=== PATIENT | female | born 1995 | race African-American/Black ===

== ENCOUNTER 2016-05-05 18:31 | Emergency (ER) | payer OTHER ==
[~2016-05-05] VITALS: Ht 160 cm; Wt 55.0 kg
[2016-05-05 18:44] VITALS: BP 118/76; PULSE 91; RESP 17; TEMP 97.4; O2SAT 97
[2016-05-05 19:35] LABS: AUTOMATED NEUTROPHIL # 4.5 TH/MM3 (1.8-7.7); BASOPHIL % 0.5 % (0.0-2.0); EOSINOPHIL # 0.1 TH/MM3 (0-0.4); EOSINOPHIL % 0.7 % (0.0-4.0); HEMATOCRIT 42.5 % (35.0-46.0); LYMPH % 32.9 % (9.0-44.0); LYMPHOCYTE # 2.6 TH/MM3 (1.0-4.8); MEAN CELL VOLUME 73.7 FL (80.0-100.0); MEAN CORPUSCULAR HGB CONC 32.6 % (32.0-36.0); MONO % 7.8 % (0.0-8.0); NEUT % 58.1 % (16.0-70.0); PLATELET COUNT 241 TH/MM3 (150-450); RED BLOOD COUNT 5.77 MIL/MM3 (4.00-5.30); RED CELL DISTRIBUTION WIDTH 13.6 % (11.6-17.2); WHITE BLOOD COUNT 7.8 TH/MM3 (4.0-11.0)
[2016-05-05 19:41] LABS: HEMO FLAGS AUTO DIFF
--- NOTE | 2016-05-05 19:44 | PD ---
HPI Chief Complaint: Psychiatric Symptoms Time Seen by Provider: 19:44 Travel History International Travel<30 days: No Contact w/Intl Traveler<30days: No Traveled to known affect area: No History of Present Illness HPI 20-year-old female presents to the emergency department under a Diamond act for psychiatric evaluation. Patient states that she was "tripping on acid" when she "freaked out." She states that she had bad thoughts about herself. She states that it was a "bad trip." She denies any suicidal homicidal ideations at this time. States that she feels much better. Patient also uses IV heroin and last used 3 days ago. Patient states she does have a psychiatric history, does not currently take medication, cannot recall the medication that she is supposed to take. Denies any other needs at this time. PFSH Past Medical History Bipolar Disorder: Yes Anxiety: Yes Depression: Yes ?: Unknown Social History Alcohol Use: Yes Tobacco Use: Yes Substance Use: Yes Allergies-Medications (Allergen,Severity, Reaction): Coded Allergies: No Known Allergies (Unverified , 05/05/16) Reported Meds & Prescriptions Reported Meds & Active Scripts Active No Active Prescriptions or Reported Medications Review of Systems Except as stated in HPI: all other systems reviewed are Neg Physical Exam Narrative GENERAL: Well-nourished, well-developed female patient in no acute distress SKIN: Warm and dry. Ecchymotic markings on arms, tracks and antecubital space. HEAD: Normocephalic. EYES: No scleral icterus. No injection or drainage. NECK: Supple, trachea midline. No JVD or lymphadenopathy. CARDIOVASCULAR: Elevated rate and rhythm without murmurs, gallops, or rubs. RESPIRATORY: Breath sounds equal bilaterally. No accessory muscle use. GASTROINTESTINAL: Abdomen soft, non-tender, nondistended. MUSCULOSKELETAL: No cyanosis, or edema. BACK: Nontender without obvious deformity. No CVA tenderness. Data Data Last Documented VS Vital Signs Date Time Temp Pulse Resp B/P Pulse Ox O2 Delivery O2 Flow Rate FiO2 05/05/16 18:44 97.4 91 17 118/76 97 Orders Complete Blood Count With Diff (05/05/16 19:04) Basic Metabolic Panel (Bmp) (05/05/16 19:04) Drug Screen, Random Urine (05/05/16 19:04) Ed Urine Pregnancytest Poc (05/05/16 19:04) Alcohol (Ethanol) (05/05/16 19:04) Psych Screen (05/05/16 19:04) Diet Regular Basic (05/06/16 Breakfast) Hydroxyzine Pamoate (Vistaril) (05/05/16 21:45) Labs Laboratory Tests Test 05/05/16 19:00 White Blood Count 7.8 TH/MM3 Red Blood Count 5.77 MIL/MM3 Hemoglobin 13.9 GM/DL Hematocrit 42.5 % Mean Corpuscular Volume 73.7 FL Mean Corpuscular Hemoglobin 24.0 PG Mean Corpuscular Hemoglobin 32.6 % Concent Red Cell Distribution Width 13.6 % Platelet Count 241 TH/MM3 Mean Platelet Volume 9.3 FL Neutrophils (%) (Auto) 58.1 % Lymphocytes (%) (Auto) 32.9 % Monocytes (%) (Auto) 7.8 % Eosinophils (%) (Auto) 0.7 % Basophils (%) (Auto) 0.5 % Neutrophils # (Auto) 4.5 TH/MM3 Lymphocytes # (Auto) 2.6 TH/MM3 Monocytes # (Auto) 0.6 TH/MM3 Eosinophils # (Auto) 0.1 TH/MM3 Basophils # (Auto) 0.0 TH/MM3 CBC Comment AUTO DIFF Differential Comment AUTO DIFF CONFIRMED Platelet Estimate NORMAL Platelet Morphology Comment NORMAL Ovalocytes 1+ Sodium Level 139 MEQ/L Potassium Level 3.7 MEQ/L Chloride Level 107 MEQ/L Carbon Dioxide Level 23.2 MEQ/L Anion Gap 9 MEQ/L Blood Urea Nitrogen 7 MG/DL Creatinine 0.71 MG/DL Estimat Glomerular Filtration 104 ML/MIN Rate Random Glucose 88 MG/DL Calcium Level 8.9 MG/DL Urine Opiates Screen NEG Urine Barbiturates Screen NEG Urine Amphetamines Screen NEG Urine Benzodiazepines Screen NEG Urine Cocaine Screen NEG Urine Cannabinoids Screen POS Ethyl Alcohol Level 63 MG/DL MDM Medical Decision Making Medical Screen Exam Complete: Yes Emergency Medical Condition: Yes Medical Record Reviewed: Yes Differential Diagnosis Mood disorder versus personality disorder versus acute psychosis versus adjustment reaction disorder versus polysubstance Narrative Course 20-year-old female presents to the emergency department under Diamond act for psychiatric evaluation. Patient appears well and without distress. She is requesting food. Vital signs are without acute concern. CBC and BMP are also without acute concern. Cannabinoids positive. EtOH is 63. Patient is medically cleared and a psychiatric screening for further evaluation and disposition. Mental health screening discussed with the patient. Psychiatric screen ordered. Diagnosis Primary Impression: Mood disorder Additional Impression: Substance abuse Scripts No Active Prescriptions or Reported Meds Condition: Stable Pilar Hdz May 05, 2016 19:44
[2016-05-05 19:45] LABS: AMPHETAMINE, URINE NEG (NEG); BARBITURATES, URINE NEG (NEG); COCAINE, URINE NEG (NEG)
[2016-05-05 19:58] LABS: BICARBONATE 23.2 MEQ/L (21.0-32.0); POTASSIUM 3.7 MEQ/L (3.5-5.1)
[2016-05-05 20:09] LABS: OVALOCYTES 1+ (NORMAL); PLATELET ESTIMATE SMEAR NORMAL (NORMAL); PLATELET MORPHOLOGY NORMAL (NORMAL); SCAN/DIFF AUTO DIFF CONFIRMED
[2016-05-05 22:45] VITALS: BP 134/65; PULSE 69; RESP 16; O2SAT 100
[2016-05-06 02:36] VITALS: BP 107/57; PULSE 84; RESP 16; O2SAT 100
[2016-05-06 06:30] VITALS: BP 109/60; PULSE 78; RESP 18; O2SAT 99
--- NOTE | 2016-05-06 10:19 | PD ---
History of Present Illness Chief Complaint: Psychiatric Symptoms Time Seen by Provider: 10:00 Travel History International Travel<30 Days: No Contact w/Intl Traveler<30days: No Known affected area: No Legal Status Legal Status: Diamond Act Diamond Act Signed By: Faye Palmer History of Present Illness: History of Present Illness 20-year-old female with history of substance use disorder who presents to the emergency department under a Diamond act initiated by JESSICA for psychiatric evaluation. Patient states that she was "tripping on acid" when she "freaked out." She states that she had bad thoughts about herself. She states that it was a "bad trip." She denies any suicidal homicidal ideations at this time. States that she feels much better. Patient also uses IV heroin and last used 3 days ago. Patient states she does have a psychiatric history, does not currently take medication, cannot recall the medication that she is supposed to take. Denies any other needs at this time. As per EMR no previous contact with [facility] ED or psychiatry department. Current toxicology positive for cannabinoids. BAL of 63. Patient has presented no behavioral concerns while in J pod and no suicidality. Patient is seen in J pod. Clinically sober at this time. Alert and oriented. Speech is clear and logical. No evidence of any hallucinations, no delusions and no paranoia. She denies any suicidal or homicidal ideation, intent or plan. In terms of psychiatric history she reports that she has had treatment in the past " years and years ago". PFSH Past Medical History Anxiety: Yes Diabetes: No Patient Takes Glucophage: No Diminished Hearing: No Hypertension: No Schizophrenia: No Tetanus Vaccination: Unknown ?: Unknown Past Surgical History Surgical History: No Previous Surgery Psychiatric History Psychiatric History Hx Psychiatric Treatment: PT DENIES History of Inpatient Treatment: No Social History Single female originally from [place]. Lives in a motel with her boyfriend. 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 Hx Alcohol Use: Yes Hx Tobacco Use: Yes Hx Substance Use: Yes (ACID, HERION, ALCOHOL) Substance Use Type: Alcohol Hx of Substance Use Treatment: No Family Psychiatric History None reported Allergies-Medications (Allergen,Severity, Reaction): Coded Allergies: No Known Allergies (Unverified , 05/05/16) Reported Meds & Prescriptions Reported Meds & Active Scripts Active No Active Prescriptions or Reported Medications Exam Alert: Yes Bagley: Person (ox4) Mood: Calm Affect: Euthymic Speech: Clear, Logical Eye Contact: Indirect Memory Intact: Comment (not impaired) Hallucinations: Other (negative) Delusions: No Suicidal: Ideation (denies any) Homicidal: Ideation (denies any) Insight/Judgement poor. poor MDM Medical Decision Making Medical Record Reviewed: Yes Assessment/Plan 20 year old female with history of substance use disorder who presents under a BA after she called the police and reported suicidal ideation. Patient has been monitored and after sobering up has denied any suicidal or homicidal ideation, intent or plan. No psychosis and no joseph. Does not meet any BA criteria at this time . Will discharge Orders Complete Blood Count With Diff (05/05/16 19:04) Basic Metabolic Panel (Bmp) (05/05/16 19:04) Drug Screen, Random Urine (05/05/16 19:04) Ed Urine Pregnancytest Poc (05/05/16 19:04) Alcohol (Ethanol) (05/05/16 19:04) Psych Screen (05/05/16 19:04) Diet Regular Basic (05/06/16 Breakfast) Hydroxyzine Pamoate (Vistaril) (05/05/16 21:45) Diet Regular Basic (05/06/16 Lunch) Results Vital Signs Date Time Temp Pulse Resp B/P Pulse Ox O2 Delivery O2 Flow Rate FiO2 05/06/16 06:30 78 18 109/60 99 05/06/16 02:36 84 16 107/57 100 Room Air 05/05/16 22:45 69 16 134/65 100 Room Air 05/05/16 18:44 97.4 91 17 118/76 97 Laboratory Tests Test 05/05/16 19:00 White Blood Count 7.8 Red Blood Count 5.77 Hemoglobin 13.9 Hematocrit 42.5 Mean Corpuscular Volume 73.7 Mean Corpuscular Hemoglobin 24.0 Mean Corpuscular Hemoglobin 32.6 Concent Red Cell Distribution Width 13.6 Platelet Count 241 Mean Platelet Volume 9.3 Neutrophils (%) (Auto) 58.1 Lymphocytes (%) (Auto) 32.9 Monocytes (%) (Auto) 7.8 Eosinophils (%) (Auto) 0.7 Basophils (%) (Auto) 0.5 Neutrophils # (Auto) 4.5 Lymphocytes # (Auto) 2.6 Monocytes # (Auto) 0.6 Eosinophils # (Auto) 0.1 Basophils # (Auto) 0.0 CBC Comment AUTO DIFF Differential Comment AUTO DIFF CONFIRMED Platelet Estimate NORMAL Platelet Morphology Comment NORMAL Ovalocytes 1+ Sodium Level 139 Potassium Level 3.7 Chloride Level 107 Carbon Dioxide Level 23.2 Anion Gap 9 Blood Urea Nitrogen 7 Creatinine 0.71 Estimat Glomerular Filtration 104 Rate Random Glucose 88 Calcium Level 8.9 Urine Opiates Screen NEG Urine Barbiturates Screen NEG Urine Amphetamines Screen NEG Urine Benzodiazepines Screen NEG Urine Cocaine Screen NEG Urine Cannabinoids Screen POS Ethyl Alcohol Level 63 Diagnosis Primary Impression: Substance abuse Additional Impression: Substance induced mood disorder Psychiatrically Cleared: Yes Departure Forms: Tests/Procedures Patient Instructions: General Instructions, Mood Disorders (ED), Polysubstance Abuse (ED) Prescriptions No Active Prescriptions or Reported Meds Disposition: 01 DISCHARGE HOME Condition: Stable Problem Qualifiers Sima Stewart May 06, 2016 10:19
[2016-05-06 10:25] VITALS: BP 105/60; PULSE 80; RESP 18; O2SAT 98
== END 2016-05-06 10:33 | disposition home or self-care (01) ==
LOC: NEPJ 18:31
DX: F39 Unspecified mood [affective] disorder (principal); F19.94 Other psychoactive substance use, unspecified with psychoactive substance-induced mood disorder; F31.9 Bipolar disorder, unspecified; F41.8 Other specified anxiety disorders; Z72.0 Tobacco use; F10.10 Alcohol abuse, uncomplicated; F11.10 Opioid abuse, uncomplicated; R45.851 Suicidal ideations
CPT/HCPCS: 80048; 80307; 80320; 84703; 85025; 99283